=== PATIENT | female | born 1975 | race Caucasian/White ===

== ENCOUNTER 2020-07-01 13:17 | Emergency (ER) | payer MEDICAID, SELFPAY ==
[2020-07-01 13:25] VITALS: BP 145/103; PULSE 115; RESP 18; TEMP 36.9; O2SAT 100; BMI 29.0
--- NOTE | 2020-07-01 15:04 | ED_ITS ---
HPI - Recheck/Abnormal Lab/Rx General Chief Complaint: Wound/Laceration Stated Complaint: WOUND CHECK Time Seen by Provider: 07/01/20 14:33 Source: patient and family Mode of arrival: ambulatory Limitations: language barrier (Tajik-speaking) History of Present Illness HPI narrative: 44-year-old female who is status post abdominal augmentation/lift, liposuction and gluteal augmentation performed by Dr.Jeffrey Sivakumar MD in [facility] on 06/15/2020 who has [address] 1 at the proximal aspect of the coccyx, 1 to the right suprapubic area/hip and 1 to the left suprapubic area/hip presenting with request for her drains to be removed. She reports she has a follow-up appointment Dr. Neff on 07/08/2020 although is hoping that she can get a sooner appointment or have her drains removed today. She reports that the drain can be removed after 7 days if the drains are draining less than 25 mL within 24 hours. She also brought a letter from her surgeon for proof. She reports that she drained all her drains while she was in the waiting room. She reports she continues to have lymphatic massages. She denies any fevers, chills, abdominal pain, diarrhea, constipation, dysuria, hematuria or any other symptoms complaints or concerns at this time. complaint: wound re-check Related Data Allergies Allergy/AdvReac Type Severity Reaction Status Date / Time No Known Allergies Allergy Verified 07/01/20 13:25 Review of Systems Review of Systems: Constitutional : No Weight loss, No Fever, No Chills, No Night Sweats, No Fatigue, No Malaise ENT/Mouth : No Hearing loss, No Ear Pain, No Nasal Congestion, No Sinus Pain, No Hoarseness, No sore throat, No Rhinorrhea, No Swallowing Difficulty Eyes: No Eye Pain, No Swelling, No Redness, No Foreign Body, No Discharge, No Vision Changes Cardiovascular : No Chest Pain, No SOB, No Dyspnea on Exertion, No Orthopnea, No Edema, No Palpitations Respiratory : No Cough, No Sputum, No Wheezing, No Smoke Exposure, No Dyspnea Gastrointestinal : No Nausea, No Vomiting, No Diarrhea, No Constipation, No abdominal Pain, No Hematochezia, No Melena Genitourinary : no irregular bleeding, No Dysuria, No Urinary Frequency, No Hematuria, No Urinary Incontinence, No Urgency, No Flank Pain, No Urinary Flow Changes, No Hesitancy Musculoskeletal : No joint pain, No Myalgias, No Joint Swelling Skin : Positive wounds, No Skin Lesions, No rash Neuro : No Weakness, No Numbness, No Paresthesias, No Loss of Consciousness, No Dizziness, No Headache Psych : No Anxiety/Panic, No Depression, No SI/HI/AH/VH, No Social Issues, Heme/Lymph: No Bruising, No Bleeding,No Lymphadenopathy Endocrine : No Polyuria, No Polydipsia, No Temperature Intolerance Yes all other systems are reviewed and are negative [facility] Past Medical History Attestation statement: The following information was validated with the patient. Medical History Depression Social History Social History Advance Directives: No Advance Directives Information Provided: Yes Physical Exam Vital Signs: Vital Signs: Last Vital Signs Temp 98.5 F 07/01/20 13:25 Pulse 115 H 07/01/20 13:25 Resp 18 07/01/20 13:25 BP 145/103 H 07/01/20 13:25 Pulse Ox 100 07/01/20 13:25 Body Mass Index 29.0 vital signs have been reviewed as normal and appeared to be correct. Blood pressure normal. Heart rate normal. Respiration rate normal. Temperature normal. Oxygen saturation normal. Appearance: Alert. Oriented X3. No acute distress. Head: Normal external exam. Normocephalic. Eyes: PERRLA. EOMI. Conjunctiva and sclera normal. Eyelids normal. ENT: Pharynx normal. Uvula midline. Moist mucous membranes. No trismus noted. No drooling noted. No muffled voice noted. Neck: Normal inspection. Neck supple. FROM. No adenopathy. No meningeal signs. CVS: Normal heart rate and rhythm. Heart sound normal. No murmurs noted. Pulses normal throughout. Respiratory: No respiratory distress. Painless inspiration. Breath sounds normal. No wheezes/rales/rhonchi noted. Chest nontender. No accessory muscle usage noted or decreased air movement noted. Abdomen: Soft and nontender. Nondistended. No guarding. No rigidity. Bowel sounds normal in all 4 quadrants. No distention noted. No organomegaly noted. No visible injury noted. No rebound tenderness. Negative Rovsing sign. Ne gative obturator's sign. Negative psoas sign. Negative Ballard sign. Back: No CVA tenderness. Full range of motion noted. Skin: Skin warm and dry. Normal skin color. Normal skin turgor. No rashe s/lesions/lacerations noted. Extremities: Extremities exhibit normal range of motion. Extremities nontender. Neuro: Oriented X 3. No motor deficit. No sensory deficit. Reflexes normal. Normal steady gait. Course Course Course Narrative: 44-year-old female who is status post abdominal augmentation/lift, liposuction and gluteal augmentation performed by Dr.Jeffrey Sivakumar MD in [facility] on 06/15/2020 who has [address] 1 at the proximal aspect of the coccyx, 1 to the right suprapubic area/hip and 1 to the left suprapubic area/hip presenting with request for her drains to be removed. She reports she has a follow-up appointment Dr. Neff on 07/08/2020 although is hoping that she can get a sooner appointment or have her drains removed today. She reports that the drain can be removed after 7 days if the drains are draining less than 25 mL within 24 hours. She also brought a letter from her surgeon for proof. Therefore when I review the patient's wounds they do not appear infected although she appears to be draining approximately 25 mL and 1 of her drains and she reports she just recently drained this therefore I am unsure if this was 25 mL since yesterday or if she is draining more than 25 mL therefore I consulted with Dr. Neff he is not on-call at this time and he reported that the patient can follow-up with him as an outpatient basis therefore explained to the patient that it appears that she is still draining quite a bit of fluid into her drains therefore we will not be removing the drain today. I instructed her that she needs to follow back up with Dr. Neff as scheduled or to call for sooner appointment. Patient understands agrees with this plan. Discharge Plan Discharge Clinical Impression: Visit for wound check Patient Disposition: Home, Self-Care Instructions: Care For Your Stitches (ED) Referrals: Huy Neff MD [Physician] - 07/01/20 (Call today to try to attempt to get an earlier appointment) Interventions: ED Discharge Assessment Last Done: 07/01/20 15:20 Discharge Date/Time: 07/01/20 15:23 Print Language: Tajik
== END 2020-07-01 15:23 | disposition home or self-care (01) ==
PROVIDERS: Emergency Provider Emergency Medicine; PCP Internal Medicine
DX: Z48.01 Encounter for change or removal of surgical wound dressing (principal)
CPT/HCPCS: 99282; 99283

== ENCOUNTER → 2020-07-09 14:43 | Outpatient (BNVA) | payer MEDICAID, SELFPAY | PROVIDERS: PCP Internal Medicine; Visit Provider Surgery | DX: Z48.03 Encounter for change or removal of drains (principal) | CPT/HCPCS: 99202 ==

== ENCOUNTER 2022-04-17 20:06 | Emergency (ER) | payer MEDICAID, SELFPAY ==
--- NOTE | ~2022-04-17 | CT_ITS ---
EXAMINATION: NONCONTRAST HEAD CT NONCONTRAST CERVICAL SPINE CT INDICATION INFORMATION: Fall, head strike COMPARISON: None TECHNIQUE: Separate noncontrast CT examinations of the head and cervical spine were performed. Coronal and sagittal images were created for each examination at the technologist workstation. This CT examination was performed using dose optimization techniques as appropriate, variously including the following: *Automated exposure control *Adjustment of mA and/or kV according to patient size (this includes techniques or standardized protocols for targeted exams where dose is matched to indication/reason for exam; i.e. extremities or head) *Use of iterative reconstruction technique DLP: 1174 mGy-cm FINDINGS: HEAD: No intra or extra-axial fluid collection, hemorrhage, or mass. No ventriculomegaly. No midline shift or herniation. Basal cisterns are patent. Stewart-white matter differentiation is maintained. No territorial encephalomalacia. No significant volume loss. There is no abnormal attenuation within the brain parenchyma. No calvarial fracture or soft tissue abnormality. Small mucous retention cyst in the right maxillary sinus. Paranasal sinuses and mastoid air cells are otherwise normally aerated. CERVICAL SPINE: Alignment: Straightening of the normal cervical lordosis. No subluxation. Vertebra: No acute fracture. No prevertebral soft tissue swelling. Degenerative disc disease: Mild degenerative disc disease at C4-C5 and C5-C6 with minimal disc height loss and mild anterior endplate proliferative change. Intervertebral disc heights are otherwise maintained. Other findings: No cervical lymphadenopathy. Visualized major salivary glands and thyroid gland are unremarkable. Visualized lung apices are clear. CT/CT cervical spine wo IV con IMPRESSION: 1. No intracranial hemorrhage or calvarial fracture. 2. No traumatic subluxation or acute cervical spine fracture.
--- NOTE | ~2022-04-17 | XR_ITS ---
EXAMINATION: XR HAND, RIGHT CLINICAL INFORMATION: Pain, fall. COMPARISON: None TECHNIQUE: PA, lateral, and oblique views of the right hand. FINDINGS: No acute fracture or subluxation. Carpal rows are maintained. No abnormal soft tissue calcifications or radiopaque foreign bodies. XR/XR hand RT 2V IMPRESSION: No acute fracture or malalignment.
--- NOTE | ~2022-04-17 | XR_ITS ---
EXAMINATION: XR KNEE, LEFT CLINICAL INFORMATION: Pain, fall. COMPARISON: None TECHNIQUE: Two views of the left knee. FINDINGS: No acute fracture or malalignment. Joint spaces are maintained. No significant soft tissue abnormality. XR/XR knee LT 2V IMPRESSION: No acute fracture or malalignment.
--- NOTE | ~2022-04-17 | CT_ITS ---
EXAMINATION: NONCONTRAST HEAD CT NONCONTRAST CERVICAL SPINE CT INDICATION INFORMATION: Fall, head strike COMPARISON: None TECHNIQUE: Separate noncontrast CT examinations of the head and cervical spine were performed. Coronal and sagittal images were created for each examination at the technologist workstation. This CT examination was performed using dose optimization techniques as appropriate, variously including the following: *Automated exposure control *Adjustment of mA and/or kV according to patient size (this includes techniques or standardized protocols for targeted exams where dose is matched to indication/reason for exam; i.e. extremities or head) *Use of iterative reconstruction technique DLP: 1174 mGy-cm FINDINGS: HEAD: No intra or extra-axial fluid collection, hemorrhage, or mass. No ventriculomegaly. No midline shift or herniation. Basal cisterns are patent. Stewart-white matter differentiation is maintained. No territorial encephalomalacia. No significant volume loss. There is no abnormal attenuation within the brain parenchyma. No calvarial fracture or soft tissue abnormality. Small mucous retention cyst in the right maxillary sinus. Paranasal sinuses and mastoid air cells are otherwise normally aerated. CERVICAL SPINE: Alignment: Straightening of the normal cervical lordosis. No subluxation. Vertebra: No acute fracture. No prevertebral soft tissue swelling. Degenerative disc disease: Mild degenerative disc disease at C4-C5 and C5-C6 with minimal disc height loss and mild anterior endplate proliferative change. Intervertebral disc heights are otherwise maintained. Other findings: No cervical lymphadenopathy. Visualized major salivary glands and thyroid gland are unremarkable. Visualized lung apices are clear. CT/CT head/brain wo IV con IMPRESSION: 1. No intracranial hemorrhage or calvarial fracture. 2. No traumatic subluxation or acute cervical spine fracture.
--- NOTE | 2022-04-17 20:09 | ED.GENADULT ---
HPI - General Adult General Chief complaint: Fall Stated complaint: fall t-1, head, hand, neck, knee inj Time Seen by Provider: 04/17/22 21:37 Related Data Home Medications Medication Instructions Recorded Confirmed bictegravir 50 mg-emtricitabine 1 tab PO DAILY 07/09/20 07/09/20 200 mg-tenofovir alafenam 25 mg tablet (Biktarvy) multivitamin with minerals 1 tab PO DAILY 07/09/20 07/09/20 Previous Rx's Medication Instructions Recorded ketorolac 10 mg tablet 10 mg PO TID PRN pain 5 days #15 04/17/22 tabs Allergies Allergy/AdvReac Type Severity Reaction Status Date / Time No Known Allergies Allergy Verified 07/09/20 14:50 PMFSH Past Medical History Medical History Change or removal of drains Depression Surgical History History of abdominoplasty (~2020) Social History Social History Alcohol intake: never Advance Directives: No Advance Directives Information Provided: No Physical Exam ED Vital Signs: Vital Signs - 24 hr 04/17/22 20:24 Temperature 97.8 F Pulse Rate 87 Respiratory Rate 16 Blood Pressure 159/126 H Pulse Oximetry 99 Oxygen Delivery Method Room Air BMI result Body Mass Index 29.7 Course Course Course Narrative: RME performed by Kasia Hernández PA-C. Patient is a 46 year old female presenting to the emergency department with head, neck, and knee pain after a fall. Imaging ordered. Patient placed back in the waiting room pending results and room availability. Medications Administered Discontinued Medications Generic Name Dose Route Start Last Admin Trade Name Freq PRN Reason Stop Dose Admin Ketorolac Tromethamine 30 mg 04/17/22 22:10 04/17/22 22:24 Ketorolac Tromethamine 15 Mg/Ml Vial IM 04/17/22 22:11 30 mg ONCE ONE Administration Discharge Plan Discharge Clinical Impression: Fall from slipping on ice, Hand pain, right, Knee pain, left, Concussion Patient Disposition: Home, Self-Care Instructions: Concussion (ED), Knee Pain (ED), Post Concussion Syndrome (ED), Arthralgia (ED), R.I.C.E. Treatment (ED) Additional Instructions: Take your medications as prescribed. If you were prescribed antibiotics today, it is important that you take your medication to their entirety, do not skip any doses, do not finish them early. Follow-up with your primary care provider this week. Return to the emergency department with new or worsening symptoms. Such as fevers, chills, chest pain, shortness of breath, nausea, vomiting, dizziness, headache, vision changes, lethargy In case of emergency call 911 Toradol has been sent to your pharmacy, you tolerated this well in the department. Please take this as prescribed do not take this with ibuprofen, or other NSAIDs, do not mix this with alcohol. Side effects of this medication including increased risk for bleeding and possible kidney injury. Prescriptions: New ketorolac 10 mg tablet 10 mg PO TID PRN (Reason: pain) 5 Days Qty: 15 0RF Rx Instructions: Tolerated IM in the department No Action Biktarvy 50-200-25 mg tablet 1 tab PO DAILY multivitamin with minerals Tablet 1 tab PO DAILY Referrals: [facility] [place] [facility] [Provider Group] - 2 days Roman Cornell MD [Primary Care Provider] - 2 days
[2022-04-17 20:24] VITALS: BP 159/126; PULSE 87; RESP 16; TEMP 36.6; O2SAT 99; BMI 29.7
--- NOTE | 2022-04-17 22:13 | ED_ITS ---
HPI - Fall General Chief Complaint: Fall Stated Complaint: fall t-1, head, hand, neck, knee inj Time Seen by Provider: 04/17/22 21:37 Source: patient Mode of arrival: ambulatory Limitations: no limitations History of Present Illness HPI Narrative: 46-year-old female history of depression presenting to the emergency department with complaints of slip and fall on ice yesterday, patient tells me she was at [employer], slipped on ice, fell onto her right hand and left knee and hit her head on the ground, patient tells me she lost consciousness ?a little?, not on blood thinner use. Today complaining of diffuse headache without vision changes or dizziness. She tells me her right hand and left knee hurt with movement, weight-bearing however feel better at rest. Patient has been ambulatory ever since. She needed help getting up off the ground however has been ambulatory without difficulties since the incident. Denies chest pain, shortness of breath, abdominal pain, nausea, vomiting, vision changes, di zziness, weakness. Related Data Home Medications Medication Instructions Recorded Confirmed bictegravir 50 mg-emtricitabine 1 tab PO DAILY 07/09/20 07/09/20 200 mg-tenofovir alafenam 25 mg tablet (Biktarvy) multivitamin with minerals 1 tab PO DAILY 07/09/20 07/09/20 Previous Rx's Medication Instructions Recorded ketorolac 10 mg tablet 10 mg PO TID PRN pain 5 days #15 04/17/22 tabs Allergies Allergy/AdvReac Type Severity Reaction Status Date / Time No Known Allergies Allergy Verified 07/09/20 14:50 Review of Systems Review of Systems: Constitutional : No Weight loss, No Fever, No Chills, No Fatigue, No Malaise ENT/Mouth : No sore throat, No Rhinorrhea Eyes: No Eye Pain, No Swelling, No Redness Cardiovascular : No Chest Pain, No SOB, No Dyspnea on Exertion, No Orthopnea, No Edema, No Palpitations Respiratory : No Cough, No Sputum, No Wheezing Gastrointestinal : No Nausea, No Vomiting, No Diarrhea, No Constipation, No abdominal Pain, No Hematochezia, No Melena Genitourinary : No Dysuria, No Urinary Frequency, No Hematuria, Musculoskeletal : + joint pain, No Myalgias, No Joint Swelling Skin : No Skin Lesions, No rash Neuro : No Weakness, No Numbness, No Dizziness, + Headache Psych : No Anxiety/Panic, No Depression All other systems reviewed and are negative Yes all other systems are reviewed and are negative [facility] Past Medical History Attestation statement: The following information was validated with the patient. Source: old records reviewed and nursing notes reviewed Medical History Change or removal of drains Depression Surgical History History of abdominoplasty (~2020) Social History Social History Alcohol intake: never Advance Directives: No Advance Directives Information Provided: No Physical Exam Vital Signs: Vital Signs: Last Vital Signs Temp 97.8 F 04/17/22 20:24 Pulse 87 04/17/22 20:24 Resp 16 04/17/22 20:24 BP 159/126 H 04/17/22 20:24 Pulse Ox 99 04/17/22 20:24 O2 Del Method 04/17/22 20:24 BMI result Body Mass Index 29.7 Vital signs significant for hypertension likely secondary to pain. Appearance: Alert.? Oriented X3.? No acute distress.? Head: Normocephalic, atraumatic, no step-offs or deformities Eyes: Pupils equal, round and reactive to light.? Neck: Subtle, full range of motion, no midline tenderness. CVS: Normal heart rate and rhythm.? Pulses normal.? Respiratory: No respiratory distress.? Breath sounds normal.? Abdomen: Soft and nontender.? Skin: Skin warm and dry.? Normal skin color.? Normal skin turgor.? Extremities: No lower extremity edema.? No calf ttp. 5/5 strength to bilateral upper and lower extremities. Full range of motion to bilateral shoulders, elbows, knees, ankles pain-free. 2+ radial pulses equal bilateral. Wrist drop. Capillary refill less than 2 seconds bilateral upper extremities Back: No midline tenderness, no C-spine tenderness, full range of motion, no CVA tenderness bilaterally Neuro: Oriented X 3.? No motor deficit.? No sensory deficit. CN 2-12 intact . Normal [id number], [id number], steady tandem gait with normal coordination. Negative Romberg. GCS of 15. NIH stroke scale 0. Course Reevaluation(s) Reevaluation #1: CT of head with no intracranial hemorrhage or clavicular fracture. No traumatic subluxations or acute cervical spine fractures on neck CT. No acute fracture malalignment. No acute fracture malalignment to right hand. Patient will be medicated with Toradol. Gave her return precautions, educated on post concussive syndrome. Educated patient on diagnosis and treatment plan, answered all question, patient verbalizes understanding. At this time patient will be discharged home, advised to return with new or worsening symptoms. Educated on worrisome signs and symptoms and when to return. At this time I feel comfortable discharge home. At time of discharge NIH stroke scale negative. GCS of 15. Patient comfortable appearing, ambulatory without difficulty. Time: 22:22 Medical Decision Making Medical Decision Making MDM Narrative: 46-year-old female presents status post slip and fall on ice yesterday reporting headache, right hand pain and left knee pain. Not on blood thinners. Reports a possible loss of consciousness however unclear. Patient poor historian. Physical exam significant for Full range of motion to bilateral shoulders, elbo ws, knees, ankles pain-free. 2+ radial pulses equal bilateral. Wrist drop. Capillary refill less than 2 seconds bilateral upper extremities. Neuro nonfocal. Cerebellar intact. Plan at this time x-ray, CT scan. Likely contusion of right hand and left knee. I do not suspect fracture, dislocation, nerve impingement, neurovascular compromise. I do not suspect stroke, posterior stroke, intracranial hemorrhage. Likely closed-head injury, concussion. Differential Diagnosis Differential Diagnoses: The differential diagnosis associated with the presentation includes Likely contusion of right hand and left knee. I do not suspect fracture, dislocation, nerve impingement, neurovascular compromise. I do not suspect str caroline, posterior stroke, intracranial hemorrhage. Likely closed-head injury, concussion. Admission/Observation Consideration of admission/observation: Escalation of care including admission/observation considered Independent Interpretation I performed an independent interpretation of an: Plain X-Ray (No fractures or dislocation) and CT Scan (Unremarkable) Radiology Impression Discussion of test interpretation with radiology: I have reviewed the radiologist's reading. Core Measures AMI core measures followed: Yes Measure exclusions: not indicated Critical Care Time Critical Care Time Critical Care Time: No Discharge Plan Discharge Clinical Impression: Fall from slipping on ice, Hand pain, right, Knee pain, left, Concussion Patient Disposition: Home, Self-Care Instructions: Concussion (ED), Knee Pain (ED), Post Concussion Syndrome (ED), Arthralgia (ED), R.I.C.E. Treatment (ED) Additional Instructions: Take your medications as prescribed. If you were prescribed antibiotics today, it is important that you take your medication to their entirety, do not skip any doses, do not finish them early. Follow-up with your primary care provider this week. Return to the emergency department with new or worsening symptoms. Such as fevers, chills, chest pain, shortness of breath, nausea, vomiting, dizziness, headache, vision changes, lethargy In case of emergency call 911 Toradol has been sent to your pharmacy, you tolerated this well in the department. Please take this as prescribed do not take this with ibuprofen, or other NSAIDs, do not mix this with alcohol. Side effects of this medication including increased risk for bleeding and possible kidney injury. Prescriptions: New ketorolac 10 mg tablet 10 mg PO TID PRN (Reason: pain) 5 Days Qty: 15 0RF Rx Instructions: Tolerated IM in the department No Action Biktarvy 50-200-25 mg tablet 1 tab PO DAILY multivitamin with minerals Tablet 1 tab PO DAILY Referrals: Roman Cornell MD [Primary Care Provider] - 2 days [facility] [place] [facility] [place]Provider Group] - 2 days
[2022-04-17] MEDS: Ketorolac Tromethamine 15 MG/ML VIAL 30 MG IM (22:24)
--- NOTE | 2022-04-17 22:27 | PC.NURSE ---
pt medicated per provider order in left deltoid, pt tolerated well.
== END 2022-04-17 22:29 | disposition home or self-care (01) ==
PROVIDERS: Emergency Provider Emergency Medicine; PCP Internal Medicine
DX: S06.0XAA Concussion with loss of consciousness status unknown, initial encounter (principal); M79.641 Pain in right hand; M25.562 Pain in left knee; R51.9 Headache, unspecified; M54.2 Cervicalgia; W00.0XXA Fall on same level due to ice and snow, initial encounter; Y93.9 Activity, unspecified; Y92.9 Unspecified place or not applicable; Y99.9 Unspecified external cause status; Z79.899 Other long term (current) drug therapy
CPT/HCPCS: 70450; 72125; 73120; 73560; 96372; 99283; 99284; J1885

== ENCOUNTER 2022-10-27 11:41 | Outpatient (REF) | payer MEDICAID, SELFPAY ==
[2022-10-27 13:18] LABS: MANUAL DIFF FLAG NO
[2022-10-27 13:37] LABS: Basophils Absolute Auto 0.1 X10*3/uL (0.0-0.2); Basophils Percent Auto 0.8 % (0-2); Eosinophils Absolute Auto 0.3 X10*3/uL (0.0-0.4); Eosinophils Percent Auto 3.4 % (0-4); Hematocrit 45.2 % (37.0-47.0); Hemoglobin 14.7 g/dl (12.0-16.0); Imm Gran Abs Auto 0.03 X10*3/uL (0.00-0.03); Imm Gran Pct Auto 0.3 % (0.0-0.4); Lymphocytes Absolute Auto 2.5 X10*3/uL (1.2-4.9); Lymphocytes Percent Auto 27.8 % (20-40); Mean Corpuscular HGB Conc 32.5 g/dl (31.0-35.0); Mean Corpuscular Hemoglobin 30.1 pg (27.0-33.0); Mean Corpuscular Volume 92.6 fL (80.0-98.0); Mean Platelet Volume 12.9 fL (9.4-12.3); Monocytes Absolute Auto 0.7 X10*3/uL (0.1-1.2); Monocytes Percent Auto 7.8 % (2-11); Neutrophils Absolute Auto 5.5 x10*3/uL (2.0-8.3); Neutrophils Percent Auto 59.9 % (45-73); Platelet Count 203 X10*3/uL (160-400); Red Blood Count 4.88 X10*6/uL (4.20-5.50); Red Cell Distribution Width 12.1 % (11.0-16.0); White Blood Count 9.1 X10*3/uL (4.8-10.8)
[2022-10-27 14:10] LABS: Alanine Aminotransferase 22 U/L (0-31); Albumin Level 3.9 g/dL (3.5-5.0); Alkaline Phosphatase 58 U/L (39-117); Anion Gap 10 (12-20); Aspartate Amino Transferase 18 U/L (5-31); Bilirubin Total 0.5 mg/dL (0.0-1.0); Blood Urea Nitrogen 15 mg/dL (9-16); Calcium 10.1 mg/dL (8.4-10.2); Carbon Dioxide 26 mmol/L (22-29); Chloride 108 mmol/L (96-108); Estimated Glomerular Filt Rate > 60; Glucose Random 77 mg/dL (60-115); Potassium 3.9 mmol/L (3.3-5.1); Sodium 140 mmol/L (135-145); Total Protein 7.2 g/dL (6.5-8.0)
[2022-10-28 15:34] LABS: HIV RNA PCR Qn Copies NOT DETECTED copies/mL (NOT DETECTED); HIV RNA PCR Qn Log Copies NOT DETECTED (NOT DETECTED)
[2022-10-29 11:43] LABS: Absolute CD3 Count 2102 cells/uL (840-3060); Absolute CD4 Count 1094 cells/uL (490-1740); Absolute CD8 Count 913 cells/uL (180-1170); Absolute Lymphocytes 2635 cells/uL (850-3900); Percent CD3 Cells 80 % (57-85); Percent CD4 Cells 42 % (30-61); Percent CD8 Cells 35 % (12-42)
== END 2022-10-27 11:42 | disposition home or self-care (01) ==
LOC: HO.HHCL 11:41
PROVIDERS: Visit Provider Internal Medicine
DX: B20 Human immunodeficiency virus [HIV] disease (principal)
CPT/HCPCS: 36415; 80053; 85025; 86359; 86360; 87536

== ENCOUNTER 2023-01-18 13:18 | Outpatient (REF) | payer MEDICAID, SELFPAY ==
[2023-01-19 23:48] LABS: Trichomonas vaginalis RNA NOT DETECTED (NOT DETECTED)
== END 2023-01-18 13:19 | disposition home or self-care (01) ==
LOC: HO.HHCLNP 13:18
PROVIDERS: Visit Provider Student in an Organized Health Care Education/Training Program
DX: B20 Human immunodeficiency virus [HIV] disease (principal)
CPT/HCPCS: 36415; 87661